=== PATIENT | female | born 1980 | race Two or more races ===

== ENCOUNTER 2021-10-17 23:46 | Emergency (ER) | payer OTHER ==
[~2021-10-17] VITALS: Ht 162.6 cm; Wt 68.0 kg
[2021-10-18] MEDS ORDERED: PEPCID40 MG PO (04:31)
[2021-10-18] MEDS ORDERED: ONDANSETRON ODT4 MG PO (04:31)
[2021-10-18] MEDS ORDERED: CEPHALEXIN500 MG PO (04:31)
== END 2021-10-18 04:44 ==
LOC: ER 23:46
DX: R10.13 Epigastric pain (principal); R11.10 Vomiting, unspecified; Z20.822 Contact with and (suspected) exposure to COVID-19